=== PATIENT | male | born 2000 | race Two or more races ===

== ENCOUNTER 2025-07-08 19:58 | Emergency (ER) | payer SELFPAY ==
[2025-07-08] MEDS: Ketorolac 30 MG/ML SDV IM ONE (21:05)
== END 2025-07-08 22:20 | disposition home or self-care (01) ==
LOC: MW.ED 19:58
DX: M25.562 Pain in left knee (principal); F17.200 Nicotine dependence, unspecified, uncomplicated; Z79.899 Other long term (current) drug therapy
CPT/HCPCS: 73562; 96372; 99283; J1885